=== PATIENT | female | born 1960 | race Caucasian/White ===

== ENCOUNTER 2022-02-18 10:00 | Emergency (ER) | payer BC ==
[~2022-02-18] VITALS: Ht 167.6 cm; Wt 100.0 kg
[2022-02-18 10:11] VITALS: BP 148/80
[2022-02-18 10:30] VITALS: BP 138/81
[2022-02-18 10:56] LABS: HEMATOCRIT 36.7 % (37.0-47.0); IMMATURE GRANULOCYTES 0.2 % (0.0-5.0); MEAN CELL VOLUME 88.2 fL CALC (80.0-100.0); MEAN CORPUSCULAR HGB 28.8 pG CALC (26.0-32.0); MEAN CORPUSCULAR HGB CONC 32.7 g/dL CAL (32.0-36.0); NEUT# 7.4 thou/uL (2.00-7.15); RED BLOOD COUNT 4.16 mill/uL (4.20-5.60)
[2022-02-18 11:01] VITALS: BP 117/61
[2022-02-18 11:10] LABS: ALBUMIN 4.5 g/dL (3.2-5.0); ALKALINE PHOSPHATASE 113 u/l (38-126); ANION GAP 15 (6-22 (CALC)); BILIRUBIN, TOTAL 0.5 mg/dL (0.0-1.4); BUN 28 mg/dL (8-23); BUN/CREATININE RATIO 24 (12-20 (CALC)); CARBON DIOXIDE 23 mmol/l (22-30); CHLORIDE 104 mmol/l (95-108); CREATININE 1.1 mg/dL (0.5-1.0); GFR FOR AFR.AMER. > 60 ML/MIN (>=60 (CALC)); GFR OTHER RACES 50 ML/MIN (>=60 (CALC)); SGOT/AST 29 u/l (9-36); SODIUM 138 mmol/l (137-146); TOTAL PROTEIN 7.9 g/dL (6.3-8.2)
[2022-02-18] MEDS ORDERED: TIZANIDINE HYDRO4 M1 PO (11:11)
[2022-02-18] MEDS ORDERED: HYDROCHLOROTH12.5 MG PO (11:13)
[2022-02-18] MEDS ORDERED: ADDERALL15 MG PO (11:15)
[2022-02-18 12:01] VITALS: BP 144/88
[2022-02-18 12:51] VITALS: BP 144/88
== END 2022-02-18 12:57 | disposition home or self-care (01) | DRG 605 ==
LOC: ED 10:00
PROVIDERS: Family Medicine
DX: S70.02XA Contusion of left hip, initial encounter (principal); I10 Essential (primary) hypertension; W55.19XA Other contact with horse, initial encounter; Y93.K3 Activity, grooming and shearing an animal; Y92.009 Unspecified place in unspecified non-institutional (private) residence as the place of occurrence of the external cause
CPT/HCPCS: Q9967

== ENCOUNTER 2022-09-14 13:29 | Emergency (ER) | payer BC ==
[~2022-09-14] VITALS: Ht 167.6 cm; Wt 100.0 kg
[~2022-09-14 13:29] MED LIST: ADDERALL15 MG PO; HYDROCHLOROTH12.5 MG PO; TIZANIDINE HYDRO4 M1 PO
[2022-09-14 13:45] VITALS: BP 175/86
[2022-09-14] MEDS ORDERED: VALSARTAN40 MG (13:59)
[2022-09-14] MEDS ORDERED: TIZANIDINE4 MG PO (14:01)
[2022-09-14 15:36] VITALS: BP 132/78
== END 2022-09-14 15:47 | disposition home or self-care (01) | DRG 125 ==
LOC: ED 13:29
PROC: 0HQ1XZZ Repair Face Skin, External Approach (ICD-10-PCS; principal; 2022-09-14)
DX: S01.111A Laceration without foreign body of right eyelid and periocular area, initial encounter (principal); I10 Essential (primary) hypertension; V80.010A Animal-rider injured by fall from or being thrown from horse in noncollision accident, initial encounter; Y93.52 Activity, horseback riding; Y92.89 Other specified places as the place of occurrence of the external cause